=== PATIENT | female | born 1955 | race Caucasian/White ===

== ENCOUNTER 2024-02-25 19:51 | Emergency (ER) | payer OTHER ==
[2024-02-25 20:03] VITALS: BMI 28.7
[2024-02-25] MEDS ORDERED: SUCRALFATE 1 GM TABLET (FP) ONE (21:13)
[2024-02-25] MEDS ORDERED: ACETAMINOPHEN INJECTION 100 ML IVPB ONE (21:13)
[2024-02-25] MEDS ORDERED: FAMOTIDINE 20 MG/50 ML IVPB 20 MG/50 ML MG IVPB ONE (21:14)
[2024-02-25] MEDS ORDERED: MAG HYDROX/AL HYDROX/SIMETH 30 ML UNIT-DOSE CUP ONE (21:14)
[2024-02-25] MEDS: ACETAMINOPHEN 1000 MG/100 ML BAG IVPB ONE (21:28)
[2024-02-25] MEDS: SUCRALFATE 1 GM/10 ML UNIT DOSE CUPS PO ONE (21:28)
[2024-02-25] MEDS: MAG HYDROX/AL HYDROX/SIMETH 30 ML UNIT-DOSE CUP PO ONE (21:28)
[2024-02-25] MEDS: SODIUM CHLORIDE 0.9% 1000 ML INFUS.BAG IV ONE (21:28)
[2024-02-25] MEDS: FAMOTIDINE 20 MG/50 ML IVPB 20 MG/50 ML MG IVPB ONE (21:28)
[2024-02-25 21:29] LABS: BASO % 1.2 % (0-2.0); HEMATOCRIT 39.1 % (32.4-45.2); HEMOGLOBIN 13.1 GM/dL (10.7-15.3); LYMPH % 37.8 % (8-40); MCH 29.7 pg (25.7-33.7); MCHC 33.4 g/dl (32.0-36.0); MEAN CELL VOLUME 88.7 fl (80-96); MEAN PLT VOLUME 9.1 fl (7.5-11.1); MONO % 9.1 % (3.8-10.2); NEUT % 50.9 % (42.8-82.8); PLATELET COUNT 211 10^3/uL (134-434); RBC 4.41 M/mm3 (3.60-5.2); RDW 12.1 % (11.6-15.6); WHITE BLOOD COUNT 5.2 K/mm3 (4.0-10.0)
[2024-02-25 21:56] LABS: POTASSIUM 4.1 mmol/L (3.5-5.1)
[2024-02-25 21:58] LABS: CALCIUM 9.5 mg/dL (8.5-10.1)
[2024-02-25 21:59] LABS: ALBUMIN 3.9 g/dl (3.4-5.0); BLOOD UREA NITROGEN 8.7 mg/dL (7-18); MAGNESIUM 2.1 mg/dL (1.8-2.4)
[2024-02-25 22:02] LABS: CREATININE 0.6 mg/dL (0.55-1.3)
[2024-02-25 22:03] LABS: BILIRUBIN,TOTAL 0.9 mg/dL (0.2-1); TOT PROT 7.5 g/dl (6.4-8.2)
[2024-02-26 00:34] LABS: EPI CELLS 20 /uL (0-25.1); HYALINE CASTS 0 /uL (0-3.1); PH,URINE 6.5 (5.0-8.0); URINE APPEARANCE CLEAR; URINE BACTERIA 76 /uL (0-1359); URINE BILIRUBIN NEGATIVE (NEGATIVE); URINE COLOR YELLOW; URINE GLUCOSE (UA) NEGATIVE (NEGATIVE); URINE KETONE NEGATIVE (NEGATIVE); URINE LEUK ESTERASE 1+ (NEGATIVE); URINE NITRITE NEGATIVE (NEGATIVE); URINE PROTEIN NEGATIVE (NEGATIVE); URINE RBC 10 /uL (0-23.9); URINE UROBILINOGEN 0.2 mg/dL (0.2-1.0); URINE WBC 54 /uL (0-25.8)
[2024-02-26 01:25] VITALS: BP 151/82; PULSE 65; RESP 17; TEMP 98.6
== END 2024-02-26 01:26 | disposition home or self-care (01) ==
LOC: JER 19:51
PROC: 3E033GC Introduction of Other Therapeutic Substance into Peripheral Vein, Percutaneous Approach (ICD-10-PCS; principal; 2024-02-25)
PROC: 3E033NZ Introduction of Analgesics, Hypnotics, Sedatives into Peripheral Vein, Percutaneous Approach (ICD-10-PCS; 2024-02-25)
DX: R10.84 Generalized abdominal pain (principal); R19.7 Diarrhea, unspecified; M79.10 Myalgia, unspecified site; R68.83 Chills (without fever); R63.0 Anorexia; R09.89 Other specified symptoms and signs involving the circulatory and respiratory systems; R14.0 Abdominal distension (gaseous); R53.81 Other malaise
CPT/HCPCS: 36415; 74177-TC; 80053; 81003; 83605; 83690; 83735; 84443; 84484; 85025; 87077; 87086; 93005; 93010; 99285-25; J0131; Q9967

== ENCOUNTER 2025-03-05 15:42 | Emergency (ER) | payer OTHER ==
[2025-03-05 16:02] VITALS: TEMP 98.4; BMI 28.5
[2025-03-05] MEDS ORDERED: morphine SULFATE IMMEDIATE RELEASE 30 MG TAB PO PRN (17:31)
[2025-03-05] MEDS ORDERED: ONDANSETRON 4 MG/2 ML VIAL ONE (18:30)
[2025-03-05] MEDS: ONDANSETRON 4 MG/2 ML VIAL IVPUSH ONE (18:35)
[2025-03-05 18:36] LABS: ABSOLUTE IMMATURE GRANULOCYTES 0.01 x10^3/uL (0.0-0.031); BASOPHILS # 0.03 x10^3/uL (0.01-0.08); EOSINOPHIL % 1.1 % (0.7-5.8); EOSINOPHILS # 0.06 x10^3/uL (0.04-0.36); MCHC 31.6 g/dl (32.2-35.5); MEAN CELL VOLUME 92.5 fl (79.4-94.8); MEAN PLT VOLUME 11.0 fl (9.4-12.3); MONOCYTE # 0.47 x10^3/uL (0.24-0.86); MONOCYTE % 8.8 % (4.7-12.5); RDW 11.8 % (12.4-16.6)
[2025-03-05] MEDS: LACTATED RINGERS SOLUTION 1000 ML INFUS.BAG IV ONE (18:40)
[2025-03-05 18:59] LABS: CO2 29.0 mmol/L (21-32)
[2025-03-05 19:00] LABS: GLUCOSE,RANDOM 93.0 mg/dL (74-106)
[2025-03-05 19:01] LABS: SGOT/AST 18.0 U/L (15-37); SGPT/ALT 23.0 U/L (13-61)
[2025-03-05] MEDS: morphine CARPU-JECT 4 MG/1 ML DISP.SYRIN IVPUSH ONE (19:02)
[2025-03-05 19:03] LABS: CREATININE 0.8 mg/dL (0.55-1.3)
[2025-03-05 19:04] LABS: TOT PROT 7.4 g/dl (6.4-8.2)
[2025-03-05 19:05] LABS: ALK PHOS 74.0 U/L (45-117)
[2025-03-05] MEDS ORDERED: PANTOPRAZOLE SODIUM 40 MG VIAL ONE (19:24)
[2025-03-05] MEDS: PANTOPRAZOLE SODIUM 40 MG VIAL IVPUSH ONE (19:28)
[2025-03-05] MEDS ORDERED: AMPICILLIN NA/SULBACTAM NA 1.5 GM VIAL ONE (22:12)
[2025-03-05] MEDS: AMPICILLIN NA/SULBACTAM NA 1.5 GM in SODIUM CHLORIDE 100 ML IVPB ONE (22:19)
[2025-03-05 23:02] VITALS: BP 139/65; PULSE 62; RESP 14
== END 2025-03-05 23:03 | disposition home or self-care (01) ==
LOC: JER 15:42
PROC: 3E03329 Introduction of Other Anti-infective into Peripheral Vein, Percutaneous Approach (ICD-10-PCS; principal; 2025-03-05)
PROC: 3E033NZ Introduction of Analgesics, Hypnotics, Sedatives into Peripheral Vein, Percutaneous Approach (ICD-10-PCS; 2025-03-05)
PROC: 3E033GC Introduction of Other Therapeutic Substance into Peripheral Vein, Percutaneous Approach (ICD-10-PCS; 2025-03-05)
PROC: 3E033GC Introduction of Other Therapeutic Substance into Peripheral Vein, Percutaneous Approach (ICD-10-PCS; 2025-03-05)
DX: R10.11 Right upper quadrant pain (principal); R11.0 Nausea; R53.1 Weakness; R63.0 Anorexia; R06.02 Shortness of breath; K86.89 Other specified diseases of pancreas; K52.9 Noninfective gastroenteritis and colitis, unspecified; K92.1 Melena
CPT/HCPCS: 36415; 71046-TC-FY; 74175-TC; 80053; 83605; 83690; 83735; 85025; 87637-QW; 93005; 93010; 99291; 99292; Q9967